=== PATIENT | female | born 1980 | race Caucasian/White ===

== ENCOUNTER 2017-10-14 07:32 | Day surgery (SDC) | END 2017-10-14 13:43 | disposition home or self-care (01) ==

== ENCOUNTER 2018-12-09 09:23 | Emergency (ER) | payer BC ==
[~2018-12-09] VITALS: Ht 167.6 cm; Wt 64.0 kg
[~2018-12-09 09:23] MED LIST: EXCED PO
[2018-12-09 09:27] VITALS: BP 143/75; PULSE 86; RESP 18; Ht 167.6 cm; Wt 64.0 kg
[2018-12-09] MEDS ORDERED: AMOX500C2 PO (10:24)
--- NOTE | 2018-12-09 10:36 | ERD ---
ER Documentation Chief Complaint Chief Complaint pt is with daughter c/o sore throat since last night HPI Patient is a 38-year-old female presents ER for concerns of nasal congestion for the last 2 months and throat pain for the last week. Patient denies fevers or chills. Patient denies any cough. Patient denies any chest pain or shortness of breath. Patient denies any nausea, vomiting, abdominal pain or diarrhea. No recent travel. Patient's daughter is a sick contact. ROS All systems reviewed and are negative except as per history of present illness. Medications Home Meds Active Scripts Amoxicillin* (Amoxicillin*) 500 Mg Cap, 500 MG PO BID for 7 Days, CAP Prov:BENSON JORDAN PA-C 12/09/18 Reported Medications Acetaminophen/Aspirin/Caffeine* (Excedrin*) 1 Tab Tab, 1 TAB PO, TAB 10/14/17 Allergies Allergies: Coded Allergies: No Known Allergy (Unverified , 10/14/17) PMhx/Soc History of Surgery: Yes (APPY) Anesthesia Reaction: No Hx Neurological Disorder: No Hx Respiratory Disorders: No Hx Cardiac Disorders: No Hx Psychiatric Problems: Yes Hx Miscellaneous Medical Probl: Yes Hx Alcohol Use: No Hx Substance Use: No Hx Tobacco Use: No FmHx Family History: No diabetes Physical Exam Vitals Vital Signs Date Temp Pulse Resp B/P (MAP) Pulse Ox O2 O2 Flow FiO2 Time Delivery Rate 12/09/18 98.5 86 18 143/75 100 09:27 (97) Physical Exam GENERAL: Well-developed, well-nourished female. Appears in no acute distress. Speaking in full sentences. HEAD: Normocephalic, atraumatic. No deformities or ecchymosis. EYE: Pupils equal, round, and reactive to light. EOMs intact. No conjunctival erythema. No eye discharge. ENT: External ear without any masses or tenderness. Auditory canals clear bilaterally. TM visualized bilaterally, non-erythematous, non-bulging. Nasal mucosa pink with no discharge. Oropharynx is erythematous with no exudates. Tender to palpation to bilateral sinuses. No uvula deviation. No kissing tonsils. NECK: Supple. No meningismus. Normal ROM of the neck. LUNG: Clear to auscultation bilaterally. No rhonchi, wheezing, rales or coarse breath sounds. HEART: Regular rate and rhythm. No murmurs, rubs or gallops. EXTREMITIES: Equal pulses bilaterally. No peripheral clubbing, cyanosis or edema. No unilateral leg swelling. NEUROLOGIC: Alert and oriented to person, place and time. Moving all four extremities. 5/5 strength in all extremities. Normal speech. Steady gait. SKIN: Normal color. Warm and dry. No rashes or lesions. Procedures/MDM MEDICAL DECISION MAKING: This is a 38-year-old female who presents the ER for concerns of nasal congestion for the last 2 months and throat pain for last week. Vital signs were reviewed. Patient was afebrile. Patient was not hypoxic. ENT exam was concerning for sinusitis and pharyngitis. Low suspicion for pneumonia, meningitis, deep space infection, osteomyelitis, otitis externa, acute otitis media, epiglottitis or peritonsillar abscess. Patient was nontoxic, non ill appearing prior to discharge. PRESCRIPTIONS: Amoxicillin DISCHARGE: At this time, patient is stable for discharge and outpatient management. Supportive therapies such as OTC throat lozenges, salt water gurgles, popsicles and jello discussed. I have instructed the patient to follow-up with his/her primary care physician in 1-2 days. I have instructed the patient to promptly return to the ER for any new or worsening symptoms including increased pain, swelling, fever, nausea, vomiting, weakness or difficulty breathing. The patient and/or family expressed understanding of and agreement with this plan. All questions were answered. Home care instructions were provided. Disclaimer: Inadvertent spelling and grammatical errors are likely due to EHR/dictation software use and do not reflect on the overall quality of patient care. Also, please note that the electronic time recorded on this note does not necessarily reflect the actual time of the patient encounter. Departure Diagnosis: Primary Impression: Sinusitis Sinusitis location: unspecified location Chronicity: unspecified Qualified Codes: J32.9 - Chronic sinusitis, unspecified Condition: Fair Patient Instructions: Understanding Sinus Problems Referrals: COMMUNITY CLINICS YOU HAVE RECEIVED A MEDICAL SCREENING EXAM AND THE RESULTS INDICATE THAT YOU DO NOT HAVE A CONDITION THAT REQUIRES URGENT TREATMENT IN THE EMERGENCY DEPARTMENT. FURTHER EVALUATION AND TREATMENT OF YOUR CONDITION CAN WAIT UNTIL YOU ARE SEEN IN YOUR DOCTORS OFFICE WITHIN THE NEXT 1-2 DAYS. IT IS YOUR RESPONSIBILITY TO MAKE AN APPOINTMENT FOR FOLOW-UP CARE. IF YOU HAVE A PRIMARY DOCTOR --you should call your primary doctor and schedule an appointment IF YOU DO NOT HAVE A PRIMARY DOCTOR YOU CAN CALL OUR PHYSICIAN REFERRAL HOTLINE AT IF YOU CAN NOT AFFORD TO SEE A PHYSICIAN YOU CAN CHOSE FROM THE FOLLOWING [facility] [address] [facility] [address] [facility] [address] [facility] [address] [facility] [address] [facility] [address] [facility]. [facility] YOU HAVE RECEIVED A MEDICAL SCREENING EXAM AND THE RESULTS INDICATE THAT YOU DO NOT HAVE A CONDITION THAT REQUIRES URGENT TREATMENT IN THE EMERGENCY DEPARTMENT. FURTHER EVALUATION AND TREATMENT OF YOUR CONDITION CAN WAIT UNTIL YOU ARE SEEN IN YOUR DOCTORS OFFICE WITHIN THE NEXT 1-2 DAYS. IT IS YOUR RESPONSIBILITY TO MAKE AN APPOINTMENT FOR FOLOW-UP CARE. IF YOU HAVE A PRIMARY DOCTOR --you should call your primary doctor and schedule and appointment IF YOU DO NOT HAVE A PRIMARY DOCTOR YOU CAN CALL OUR PHYSICIAN REFERRAL HOTLINE AT . IF YOU CAN NOT AFFORD TO SEE A PHYSICIAN YOU CAN CHOSE FROM THE FOLLOWING [facility] INSTITUTIONS: [facility] [address] [place] [address] [facility] [address] [place] [address] [facility] + [facility] [address] [place] [address] Additional Instructions: Call your primary care doctor TOMORROW for an appointment during the next 1-2 days.See the doctor sooner or return here if your condition worsens before your appointment time. BENSON JORDAN PA-C December 09, 2018 10:36
== END 2018-12-09 10:32 | disposition home or self-care (01) ==
LOC: FTE 09:23
DX: J32.9 Chronic sinusitis, unspecified (principal)
CPT/HCPCS: 99283